=== PATIENT | female | born 1970 | race Caucasian/White ===

== ENCOUNTER → 2023-08-28 | Outpatient (CLI) | payer OTHER, SELFPAY ==
--- NOTE | 2023-08-28 13:06 | PCM.CR.HP2 ---
CR - History & Physical General Arrival date:: 08/28/23 Arrival time:: 13:07 Date of Referral:: 08/21/23 Date of CR Evaluation:: 08/28/23 Referring Physician: Dr. Regine Deluna Primary Diagnosis: AVR History of Present Cardiac Event Onset Date Heart valve replacement or repair:: Yes Medications Ambulatory Orders Medication Instructions Recorded amiodarone 200 mg tablet 200 mg PO DAILY 08/28/23 aspirin 81 mg tablet,delayed 81 mg PO DAILY 08/28/23 release atorvastatin 40 mg tablet 40 mg PO DAILY 08/28/23 gabapentin 100 mg capsule 100 mg PO BID 08/28/23 Allergies Allergies No Known Allergies Allergy (Unverified 08/19/22 07:40) Sleep Disorder Evaluation Hx of Sleep Apnea: No Do you snore loudly (louder than talking or can be heard through closed doors)?: No Do you often feel tired/ fatigued/ sleepy during daytime?: No Has anyone observed you stop breathing during sleep?: No History of Hypertension (for STOP score): No STOP Results: Negative Advanced Directives Advanced Directives Power of Pocket Machine Operator: No Living Will: No Advance Directives Information Provided: No Advance Directives on File: No DNR Order?:: No Past Medical History Covid-19 Screening Physicial Symptoms Other Clinical Concerns Exposure Risk Pertinent Comorbidities Has a serious heart condition:: Yes Past Surgical History Surgical History: - (Aortic aneurysm repair, AVR) Social History Smoking History Smoking Status: Never smoker Alcohol Use Alcohol Usage: Yes (rare) Occupation Occupation (List type of work in comments):: Employed Hours worked per day:: 9 Hobbies, Recreation, Social Activities Hobbies: Reading and Hiking Recreational Activities: I am able to engage in most, but not all activities Social Environment Status Marital Status: Single Current Living Arrangements Living Environment:: Family Children Do any of your children live nearby?: No Safety Do you feel safe in your surroundings?: Yes Assistance Do you need any assistance at home?: no Review of Systems Review of Systems Hints Review of Present Symptoms: Reports Shortness of Breath with Exertion, Operative Discomfort, Fatigue, Appetite - Normal and Sleep - Normal; Denies Shortness of Breath at Rest, PVD, Angina, Wound Healing, Dizziness/Lightheadedness, Heart Arrhythmia/Irregularities, Appetite - Special Diet or Sexual Changes Pain Is Patient Pain Free?: No Pain Location: back Pain Level: 03/21 Risk Factor Assessment Vital Signs Pulse Ox: 94 Blood Pressure: 136/63 Pulse Pulse Rate: 75 Stress Stress: Work-related Obesity Height: 5 ft 3 in Weight:: 177 lb Weight in Pounds: 177.0 lbs Body Mass Index (BMI): 31.3 Nutritional Referral for Obesity: No Physical Inactivity Physical Inactivity: Reg Exercise 30 min/day Risk Stratification Risk Guidelines: Lowest Risk: Risk Factor for Smoking, Risk Factor for Diabetes, Risk Factor for Sedentary Lifestyle and Risk Factor for Depression, Moderate Risk: Risk Factor for Obesity and Risk Factor for Hypertension and Highest Risk: Risk Factor for Dyslipidemia For Smoking Smoking Risk Guidelines For Dyslipidemia Dyslipidemia Risk Guidelines For Diabetes Mellitus Diabetes Risk Guidelines For Obesity/Overweight Obesity/Overweight Risk Guidelines For Hypertension Hypertension Risk Guidelines For Sedentary Lifestyle Sedentary Lifestyle Risk Guidelines For Depression Depression Risk Guidelines Motivation Motivation to Participate On a scale of 1 to 10, how prepared are you to commit to attending program?: 10 What do you see as barriers to successfully being able to complete the program?: nothing What do you see as the benefits of succesfully completing the program? In other words, what do you hope to get out of participating in the program?: strength Are there issues you are dealing with that will interfere with completing the program?: no Do you have a spouse or signficant other, family or friends who will help support you to complete the program?: family
[2023-08-28 13:19] VITALS: BP 136/63; PULSE 75; O2SAT 94
[2023-08-28 13:30] VITALS: BMI 31.3
--- NOTE | 2023-08-28 14:09 | PCM.CR.ITP ---
Diagnosis General Information Admitting Diagnosis: AVR Personal Learning Style:: Audio/Visual Stage of change r/t lifestyle modifications:: Contemplation Gave educational material for:: Treating Heart Disease, How The Heart Works, What it means to have Heart Disease, How Coronary Artery Disease is Diagnosed, Heart Procedures, What Heart Medications Do, Risk Factors & Modifications, Living an Active Life, Nutrition, Emotions & Heart Disease, Stress Management & Relaxation and Sleep Disorders & Heart Disease Education/Goals Cardiac Rehabilitation Goals Personal Goals: Initial Assessment: Improve management of stress and emotions, Improve energy level, Participate in home exercise program, Get back to work, or to resume activities faster, Improve knowledge of cardiac disease, Improve muscle strength and endurance, Improve diet and eating habits (eat healthier) and Control risk factors (learn risk factor modification) Scale for measuring improvement of personal goals Diagnosis & Disease Process Outcomes/Goals: Pt IDs own risk factors & lifestyle modifications by Session 10, Verbalizes symptoms of angina & response by session 3., Pt independently manages and Other Additional Outcomes/Goals: Plan/Interventions: Assist Pt to ID & engage in lifestyle modification to reduce CVD risk, Instruct on individual risk factors, Review symptoms of angina & emergency actions, Review secondary diagnosis & identify educational needs. and Other see comment 30 day Reassessments:: Not Met 30 day Reassessments:: Not Met 30 day Reassessments:: Not Met 30 day Reassessments:: Not Met Final Reassessments:: Not Met Safety Referral to Physical Therapy: No Referral to [facility] Case Management: No Fall Risk Assessed:: Yes Assistive Devices:: None Exercise - Initial Assessment Visit Date of Eval: 08/28/23 (initial eval ) Mets: Pre-: >3 METS for 30 minutes by discharge, >5 METS for 30 minutes by discharge, >7 METS for 30 minutes by discharge and Unable to meet goal due to: (see comment below) Physician Prescribed Exercise Modalities: Treadmill, Airdyne, NuStep, SciFit and Lateral Community Development Coordinator Frequency: 3x/week for 12 weeks [36 sessions] Intensity: 60-80% of age predicted maximum heart rate reserve Duration: 30 - 45 minutes Current METSs:: 3 Target Heart Rate:: 101-128 Resting Blood Pressure: 136/63 EKG Type: NSR Outcomes & Goals Goals:: Verbalizes understanding of THR, RPE & goal METS by session 6, Documents in home exercise log/reports 30 min aerobic 5 day/wk by DC, Demonstrates accurate pulse taking by DC and Other additional outcome/goals: see below Intervention & Plan Exercise Program Goals: Instruct on personal THR & RPE, Instruct on MET level & personal MET goal, Show patient to take own pulse /validate performance until accurate, Instruct on home exercise and Other additional plan/int Physical Activity Home Exercise Physical Activity - Home Exercise: Safe Exercise, Warm-up, Self-monitoring, Cool-Down, Home Exercise > 30 min Daily and Sitting Time <3 hours/daily Outcomes & Goals Outcomes/Goals: Demonstrates correct Warm-up/exercise Cool-Down (S3) if = 2.5 METs, Verbalizes symptoms of exercise intolerance by Session 3 (S3), Demonstrate safe equipment use (S3) & follows exercise prescrition (6) and Other: See below Intervention & Plan Plan/Intervention: Instruct warm-up & cool-down if exercising at > 2 METs, Instruct on symptoms of exercise intolerance & actions to take, Instruct & monitor on saf, Assess intial functional capacity & safety risk and Other See below Nutrition - Initial Assessment Program Goals Nutrition Program Goals Patient has diagnosis of Hyperlipidemia (ICD E78)?: Yes Visit Date of Eval: 08/28/23 (initial eval ) Cholesterol/Lipids (Other Core Measures) Determine presence & major risk factors that modify LDL goal: Hypertension or hypertensive medication, Low HDL cholesterol <40 mg/dL*, Family history of premature CHD in Male < 55 years: female <65 yearsFa and Age men > 45 years; women >/= 55 years Outcomes/Goals: Pt IDs own risk factors & lifestyle modifications by Session 10, Verbalizes symptoms of angina & response by session 3., Pt independently manages and Other Additional Outcomes/Goals: Intervention/Plan: Advocate for lipid panel cholesterol medication if applicable, Instruct on personal lipid levels & lipid goals/NCEP guidelines, Instruct on cholesterol and Other additional plan/int Referral to dietitian:: Yes Diabetes (Other Core Measures) Diabetes Type: Not Applicable Weight Mgt (Other Care) Height: 5 ft 3 in Weight:: 177 lb BMI: 31.3 Diagnosis Overweight/Obesity BMI> 30% ICD-10 E66: Yes Diagnosis High BMI/Morbid Obesity BMI> 35% ICD-10 Z68: No Outcomes/Goals: Pt sets, maintains & shows weight loss goal & trend during rehab and Other additional outcomes/goals Intervention/Plan: Instruct on ideal BMI & set weight loss goal w/patient, Assist pt to ID & incorporate diet changes for weight loss by S9, Refer to Structured Weight Loss program as appropriate, Encourage goal of using 250-300dcal per session for weight loss and Other additional plan/interventions Healthy Eating Habits Will attend diet classes:: Yes Outcomes/Goals:: Consume diet rich in vegs,fruits,whole grain/high fiber,fish,lean meat, Limit sat/trans fats,cholesterol & added salts & sugars and Other additional outcome/goals: Intervention/Plan:: Assess current eating habits and Other Additional plan/interventions Education Gave educational materials for:: Signs & symptoms of hypoglycemia, Signs & symptoms of hyperglycemia, Relate diabetes to coronary artery disease and Healthy eating Core - Initial Assessment Visit Date of Eval: 08/28/23 (initial eval ) Medication Compliance Preventative Medication(s):: Aspirin and Statin/lipid H/O mental health issues: depression, anxiety, or addiction?: No Doesn?t believe in the benefits of treatment?: No Believes medications are unnecessary or harmful?: No Has a concern about medication side effects?: No Expresses concern over the cost of medications?: No Outcomes/Goals: Verbalizes medications,desired effect & common side effects @ DC, Pt self-reports following medication regimen, Keeps card in wallet w/medications listed by DC and Other additional outcome/goals: Interventions/plans: Instruct on medication effects & side effects, Review medication list w/patient every two weeks, Instruct importance of taking meds as ordered & assist problem solving and Other additional Tobacco Use Tobacco Use: Non-smoker Hypertension Resting Blood Pressure:: 136/63 [place] [employer] Hypertension Guidelines Outcomes/Goals: Able to verbalize/achieve optimal blood pressure <130/80, Incorporates diet changes & exercise for blood pressure control by DC and Other additional outcomes/goals Interventions/plan: Instruct on optimal blood pressure, hypertension & medications, Instruct on effects of sodium, alcohol, stress, exercise &hypertension and Other additional plan/interventions Tobacco Cessation Referral Smoking Cessation Referral:: No Individual Education/Counseling:: No Education Schedule Given:: Yes Psychosocial - Initial Assess VIsit Date of Eval: 08/28/23 (initial eval ) History of previous Mental disease:: No Target Goals Target Goals Patient Health Questionnaire PHQ-9 Screening Initial Assessment: 1. Little interest or pleasure in doing things: Several days 2. Feeling down, depressed, or hopeless: Several days 3. Trouble falling or staying asleep, or sleeping too much: Several days 4. Feeling tired or having little energy: Several days 5. Poor appetite or overeating: Not at all 6. Feeling bad about yourself -- or that you are a failure or have let yourself or your family down: Not at all 7. Trouble concentrating on things, such as reading the newspaper or watching television: Not at all 8. Moving or speaking so slowly that other people could have noticed. Or the opposite - being so fidgety or restless that you have been moving around a lot more than usual: Not at all 9. Thoughts that you would be better off , or of hurting yourself in some way: Not at all How difficult have these problems made it for you to do your work, take care of things at home, or get along with other people?: Not difficult at all Total Score: 4 CELINA-Q SV Test Statements CAD is a disease of the arteries in the heart: I Don't Know Examples of risk factors for heart disease: True Angina is chest pain or discomfort: I Don't Know The benefits of resistance training include: True Eating more meat and dairy products: False Anti-platelet medications such as aspirin are important: True The only effective way to manage stress: False An exercise warm-up slowly increases heart rate: True Prepared, processed foods usually have high sodium: I Don't Know Depression is common after a heart attack: True The statin medications lower cholesterol: True To control blood pressure, lower the amount of sodium: True If someone gets chest discomfort during walking: False Transfats are partially hydrogenated vegetable oils: I Don't Know Sleep apnea that is not treated increases the risk: True To control cholesterol, one should become a vegetarian: False Someone knows if he/she is exercising at the right level: True Diabetes cannot be prevented with exercise & health eating: False Stress is a large risk for heart attack: I Don't Know A diet that can help lower blood pressure is rich in: True Total Score Total Correct Responses: 14 Self-Efficacy 6-Item Scale Initial Assessment: We would like to know how confident you are in doing certain activities. Please select your confidence level for: Fatigue Select Number: 10 Physical Discomfort or Pain Select Number: 10 Emotional Distress Select Number: 9 Other Symptoms or Health Problems Select Number: 8 Different Tasks and Activities Select Number: 10 Medication Select Number: 10 Total Score:: 9 Nutrition Survey Nutrition Survey Instructions Scoring Instructions Nutrition Survey Initial: Have you lost >10 lbs over the past 2 months without trying?: Yes Are you following a special diet at home for diabetes, low fat, or low salt?: No Are you interested in meeting with a dietitian for help understanding your diet?: Yes Do you eat less than 3 meals a day?: No Do you eat fatty meats (german, sausage, ribs, etc), fried foods, desserts, large amounts of salad dressings, margarine, butter, or cheese most days?: No Do you have food allergies? [Enter types in comment field]: No Do you eat in restaurants more than 3 times a week?: No Do you season food with salt, seasoning salt, or garlic salt?: Yes Do you used canned, boxed, frozen meals, or soups, seasoning packets?: Yes Total Score:: 4 Exercise - Final/Discharge Physician Prescribed Exercise Modalities: Treadmill, Airdyne, NuStep, SciFit and Lateral Community Development Coordinator Frequency: 3x/week for 12 weeks [36 sessions] Intensity: 60-80% of age predicted maximum heart rate reserve Current METSs:: 3 Target Heart Rate:: 101-128 Nutrition - 30-Day Assessment Weight Mgt (Other Care) Height: 5 ft 3 in Weight:: 177 lb BMI: 31.3 Nutrition - 60-Day Assessment Weight Mgt (Other Care) Height: 5 ft 3 in Weight:: 177 lb BMI: 31.3 Core - Final Assessment Hypertension Resting Blood Pressure:: 136/63 [place] [employer] Hypertension Guidelines Core - 60-Day Assessment Hypertension Resting Blood Pressure:: 136/63 [place] [employer] Hypertension Guidelines Psychosocial - 30-Day Assess Target Goals Target Goals Psychosocial - 60-Day Assess Target Goals Target Goals Psychosocial - 90-Day Assess Target Goals Target Goals Psychosocial - Final Assessmen Target Goals Target Goals Nutrition - 90-Day Assessment Weight Mgt (Other Care) Height: 5 ft 3 in Weight:: 177 lb BMI: 31.3 Nutrition - Final Assessment Program Goals Patient has diagnosis of Hyperlipidemia (ICD E78)?: Yes Weight Mgt (Other Care) Height: 5 ft 3 in Weight:: 177 lb BMI: 31.3
[2023-08-28 14:22] VITALS: BP 136/63; BMI 31.3
== END | disposition home or self-care (01) ==
DX: E78.5 Hyperlipidemia, unspecified (principal)
CPT/HCPCS: 93005

== ENCOUNTER 2023-09-09 15:39 | Outpatient (RCR) | payer OTHER, SELFPAY | END 2023-09-10 23:59 | LOC: CR 15:39 | DX: Z95.2 Presence of prosthetic heart valve (principal); Z95.828 Presence of other vascular implants and grafts; E66.9 Obesity, unspecified | CPT/HCPCS: 93798 ==

== ENCOUNTER 2023-10-09 15:45 | Outpatient (RCR) | payer OTHER, SELFPAY ==
[2023-08-28 14:22] VITALS: BMI 31.3
--- NOTE | 2023-09-25 10:20 | CR.ITP_ITS ---
Exercise - Initial Assessment Visit Session #:: 7 Nutrition - Initial Assessment Weight Mgt (Other Care) Height: 5 ft 3 in Weight:: 176 lb BMI: 31.1 Psychosocial - Initial Assess Target Goals Target Goals Patient Health Questionnaire PHQ-9 Screening 30-Day Re-eval Assessment: 1. Little interest or pleasure in doing things: Several days 2. Feeling down, depressed, or hopeless: Several days 3. Trouble falling or staying asleep, or sleeping too much: Several days 4. Feeling tired or having little energy: Several days 5. Poor appetite or overeating: Not at all 6. Feeling bad about yourself -- or that you are a failure or have let y ourself or your family down: Not at all 7. Trouble concentrating on things, such as reading the newspaper or watching television: Not at all 8. Moving or speaking so slowly that other people could have noticed. Or the opposite - being so fidgety or restless that you have been moving around a lot more than usual: Not at all 9. Thoughts that you would be better off , or of hurting yourself in some way: Not at all How difficult have these problems made it for you to do your work, take care of things at home, or get along with other people?: Not difficult at all Total Score: 4 Self-Efficacy 6-Item Scale 30-Day Re-eval Assessment: We would like to know how confident you are in doing certain activities. Please select your confidence level for: Fatigue Select Number: 10 Physical Discomfort or Pain Select Number: 10 Emotional Distress Select Number: 9 Other Symptoms or Health Problems Select Number: 8 Different Tasks and Activities Select Number: 10 Medication Select Number: 10 Total Score:: 9 Nutrition Survey Nutrition Survey Instructions Scoring Instructions Exercise - 30-day Assessment Visit Date of Eval: 09/25/23 Session #:: 7 Physician Prescribed Exercise Modalities: Treadmill, Airdyne and NuStep Intensity: 60-80% of age predicted maximum heart rate reserve Duration: 30 - 45 minutes Current METSs:: 3 Target Heart Rate:: 101-128 Current RPE:: 9-12 Maximum Excercise HR:: 122 Resting Blood Pressure: 128/70 Maximum Exercise Blood Pressure: 148/82 EKG Type: NSR to ST Outcomes & Goals Goals:: Verbalizes understanding of THR, RPE & goal METS by session 6, Documents in home exercise log/reports 30 min aerobic 5 day/wk by DC, Demonstrates accurate pulse taking by DC and Other additional outcome/goals: see below Intervention & Plan Exercise Program Goals: Instruct on personal THR & RPE, Instruct on MET level & personal MET goal, Show patient to take own pulse /validate performance until accurate, Instruct on home exercise and Other additional plan/int 30-day Reassessments 30 day Reassessments:: Progressing Reassessment Notes & Comments:: RPE explained Physical Activity Home Exercise Physical Activity - Home Exercise: Safe Exercise, Warm-up, Self-monitoring, Cool-Down, Home Exercise > 30 min Daily and Sitting Time <3 hours/daily Outcomes & Goals Outcomes/Goals: Demonstrates correct Warm-up/exercise Cool-Down (S3) if = 2.5 METs, Verbalizes symptoms of exercise intolerance by Session 3 (S3), Demonstrate safe equipment use (S3) & follows exercise prescrition (6) and Other: See below Intervention & Plan Plan/Intervention: Instruct warm-up & cool-down if exercising at > 2 METs, Instruct on symptoms of exercise intolerance & actions to take, Instruct & monitor on saf, Assess intial functional capacity & safety risk and Other See below 30-day Reassessments 30 day Reassessments:: Progressing Reassessment Notes & Comments:: warm up encouraged Nutrition - 30-Day Assessment Program Goals Nutrition Program Goals Patient has diagnosis of Hyperlipidemia (ICD E78)?: Yes Visit Date of Eval: 09/25/23 Session #:: 7 Cholesterol/Lipids (Other Core Measures) Determine presence & major risk factors that modify LDL goal: Hypertension or hypertensive medication, Low HDL cholesterol <40 mg/dL*, Family history of premature CHD in Male < 55 years: female <65 yearsFa and Age men > 45 years; women >/= 55 years Outcomes/Goals: Pt IDs own risk factors & lifestyle modifications by Session 10, Verbalizes symptoms of angina & response by session 3., Pt independently manages and Other Additional Outcomes/Goals: Intervention/Plan: Advocate for lipid panel cholesterol medication if applicable, Instruct on personal lipid levels & lipid goals/NCEP guidelines, Instruct on cholesterol and Other additional plan/int 30-day Reassessments:: Progressing Reassessment Notes & Comments:: pt to attend nutrition class Diabetes (Other Core Measures) Diabetes Type: Not Applicable Weight Mgt (Other Care) Height: 5 ft 3 in Weight:: 176 lb BMI: 31.1 Diagnosis Overweight/Obesity BMI> 30% ICD-10 E66: Yes Diagnosis High BMI/Morbid Obesity BMI> 35% ICD-10 Z68: No Outcomes/Goals: Pt sets, maintains & shows weight loss goal & trend during rehab and Other additional outcomes/goals Intervention/Plan: Instruct on ideal BMI & set weight loss goal w/patient, Assist pt to ID & incorporate diet changes for weight loss by S9, Refer to Structured Weight Loss program as appropriate, Encourage goal of using 250- 300dcal per session for weight loss and Other additional plan/interventions 30 day Reassessments:: Progressing Reassessment Notes & Comments:: pt to attend nutrition class Healthy Eating Habits Will attend diet classes:: Yes Outcomes/Goals:: Consume diet rich in vegs,fruits,whole grain/high fiber,fish,lean meat, Limit sat/trans fats,cholesterol & added salts & sugars and Other additional outcome/goals: 30-day Reassessments:: Progressing Reassessment Notes & Comments:: pt to attend nutrition class Education Gave educational materials for:: Signs & symptoms of hypoglycemia, Signs & symptoms of hyperglycemia, Relate diabetes to coronary artery disease and Healthy eating Nutrition - 60-Day Assessment Weight Mgt (Other Care) Height: 5 ft 3 in Weight:: 176 lb BMI: 31.1 Core - 30-Day Assessment Visit Date of Eval: 09/25/23 Session #:: 7 Medication Compliance Preventative Medication(s):: Aspirin and Statin/lipid H/O mental health issues: depression, anxiety, or addiction?: No Doesn?t believe in the benefits of treatment?: No Believes medications are unnecessary or harmful?: No Has a concern about medication side effects?: No Expresses concern over the cost of medications?: No Outcomes/Goals: Verbalizes medications,desired effect & common side effects @ DC, Pt self-reports following medication regimen, Keeps card in wallet w/medications listed by DC and Other additional outcome/goals: Interventions/plans: Instruct on medication effects & side effects, Review medication list w/patient every two weeks, Instruct importance of taking meds as ordered & assist problem solving and Other additional 30-day Reassessments:: Progressing Reassessment Notes & Comments:: pt encouraged to take her meds Tobacco Use Tobacco Use: Non-smoker Hypertension Resting Blood Pressure:: 128/70 [place] [employer] Hypertension Guidelines Peak Exercise Blood Pressure:: 148/82 Outcomes/Goals: Able to verbalize/achieve optimal blood pressure <130/80, Incorporates diet changes & exercise for blood pressure control by DC and Other additional outcomes/goals Interventions/plan: Instruct on optimal blood pressure, hypertension & medications, Instruct on effects of sodium, alcohol, stress, exercise &hypertension and Other additional plan/interventions 30 day Reassessments:: Progressing Reassessment Notes & Comments:: pt encouraged to take her meds Tobacco Cessation Referral Smoking Cessation Referral:: No Individual Education/Counseling:: No Education Schedule Given:: Yes Psychosocial - 30-Day Assess VIsit Date of Eval: 09/25/23 Session #:: 7 History of previous Mental disease:: No Target Goals Target Goals Psychosocial - 60-Day Assess Target Goals Target Goals Psychosocial - 90-Day Assess Target Goals Target Goals Psychosocial - Final Assessmen Target Goals Target Goals Nutrition - 90-Day Assessment Weight Mgt (Other Care) Height: 5 ft 3 in Weight:: 176 lb BMI: 31.1 Nutrition - Final Assessment Weight Mgt (Other Care) Height: 5 ft 3 in Weight:: 176 lb BMI: 31.1
[2023-09-25 10:28] VITALS: BP 128/70; BMI 31.1
== END 2023-10-11 23:59 ==
LOC: CR 15:45
DX: Z95.2 Presence of prosthetic heart valve (principal); Z95.828 Presence of other vascular implants and grafts
CPT/HCPCS: 93798

== ENCOUNTER 2023-11-04 15:45 | Outpatient (RCR) | payer OTHER, SELFPAY ==
[2023-09-25 10:28] VITALS: BMI 31.1
[2023-10-12 00:38] VITALS: BP 128/70
--- NOTE | 2023-10-26 08:35 | CR.ITP_ITS ---
Nutrition - Initial Assessment Weight Mgt (Other Care) Height: 5 ft 3 in Weight:: 177 lb BMI: 31.3 Psychosocial - Initial Assess Target Goals Target Goals Patient Health Questionnaire PHQ-9 Screening 60-Day Re-eval Assessment: 1. Little interest or pleasure in doing things: Several days 2. Feeling down, depressed, or hopeless: Several days 3. Trouble falling or staying asleep, or sleeping too much: Several days 4. Feeling tired or having little energy: Several days 5. Poor appetite or overeating: Not at all 6. Feeling bad about yourself -- or that you are a failure or have let yourself or your family down: Not at all 7. Trouble concentrating on things, such as reading the newspaper or watching television: Not at all 8. Moving or speaking so slowly that other people could have noticed. Or the opposite - being so fidgety or restless that you have been moving around a lot more than usual: Not at all 9. Thoughts that you would be better off , or of hurting yourself in s ome way: Not at all How difficult have these problems made it for you to do your work, take care of things at home, or get along with other people?: Not difficult at all Total Score: 4 Self-Efficacy 6-Item Scale 60-Day Re-eval Assessment: We would like to know how confident you are in doing certain activities. Please select your confidence level for: Fatigue Select Number: 10 Physical Discomfort or Pain Select Number: 10 Emotional Distress Select Number: 9 Other Symptoms or Health Problems Select Number: 8 Different Tasks and Activities Select Number: 10 Medication Select Number: 10 Total Score:: 9 Nutrition Survey Nutrition Survey Instructions Scoring Instructions Exercise - 60-day Assessment Visit Date of Eval: 10/26/23 Session #:: 16 Physician Prescribed Exercise Modalities: Treadmill, Airdyne and NuStep Frequency: 3x/week for 12 weeks [36 sessions] Intensity: 60-80% of age predicted maximum heart rate reserve Duration: 30 - 45 minutes Current METSs:: 5 Target Heart Rate:: 101-128 Current RPE:: 11-12.5 Maximum Excercise HR:: 177 Resting Blood Pressure: 126/72 Maximum Exercise Blood Pressure: 214/102 EKG Type: NSR to ST with isolated PVC. 44 sec burst of PSVT. Outcomes & Goals Goals:: Verbalizes understanding of THR, RPE & goal METS by session 6, Documents in home exercise log/reports 30 min aerobic 5 day/wk by DC, Demonstrates accurate pulse taking by DC and Other additional outcome/goals: see below Intervention & Plan Exercise Program Goals: Instruct on personal THR & RPE, Instruct on MET level & personal MET goal, Show patient to take own pulse /validate performance until accurate, Instruct on home exercise and Other additional plan/int 30-day Reassessments 30 day Reassessments:: Progressing Reassessment Notes & Comments:: MET's explained Physical Activity Home Exercise Physical Activity - Home Exercise: Safe Exercise, Warm-up, Self-monitoring, Cool-Down, Home Exercise > 30 min Daily and Sitting Time <3 hours/daily Outcomes & Goals Outcomes/Goals: Demonstrates correct Warm-up/exercise Cool-Down (S3) if = 2.5 METs, Verbalizes symptoms of exercise intolerance by Session 3 (S3), Demonstrate safe equipment use (S3) & follows exercise prescrition (6) and Other: See below Intervention & Plan Plan/Intervention: Instruct warm-up & cool-down if exercising at > 2 METs, Instruct on symptoms of exercise intolerance & actions to take, Instruct & monitor on saf, Assess intial functional capacity & safety risk and Other See below 30-day Reassessments 30 day Reassessments:: Progressing Reassessment Notes & Comments:: cool down encouraged Nutrition - 30-Day Assessment Weight Mgt (Other Care) Height: 5 ft 3 in Weight:: 177 lb BMI: 31.3 Nutrition - 60-Day Assessment Program Goals Nutrition Program Goals Patient has diagnosis of Hyperlipidemia (ICD E78)?: Yes Visit Date of Eval: 10/26/23 Session #:: 16 Cholesterol/Lipids (Other Core Measures) Determine presence & major risk factors that modify LDL goal: Hypertension or hypertensive medication, Low HDL cholesterol <40 mg/dL*, Family history of premature CHD in Male < 55 years: female <65 yearsFa and Age men > 45 years; women >/= 55 years Outcomes/Goals: Pt IDs own risk factors & lifestyle modifications by Session 10, Verbalizes symptoms of angina & response by session 3., Pt independently manages and Other Additional Outcomes/Goals: Intervention/Plan: Advocate for lipid panel cholesterol medication if applic able, Instruct on personal lipid levels & lipid goals/NCEP guidelines, Instruct on cholesterol and Other additional plan/int 30-day Reassessments:: Progressing Reassessment Notes & Comments:: pt to attend nutrition class Diabetes (Other Core Measures) Diabetes Type: Not Applicable Weight Mgt (Other Care) Height: 5 ft 3 in Weight:: 177 lb BMI: 31.3 Diagnosis Overweight/Obesity BMI> 30% ICD-10 E66: Yes Diagnosis High BMI/Morbid Obesity BMI> 35% ICD-10 Z68: No Outcomes/Goals: Pt sets, maintains & shows weight loss goal & trend during rehab and Other additional outcomes/goals Intervention/Plan: Instruct on ideal BMI & set weight loss goal w/patient, Assist pt to ID & incorporate diet changes for weight loss by S9, Refer to Structured Weight Loss program as appropriate, Encourage goal of using 250- 300dcal per session for weight loss and Other additional plan/interventions 30 day Reassessments:: Progressing Reassessment Notes & Comments:: pt to attend nutrition class Healthy Eating Habits Will attend diet classes:: Yes Outcomes/Goals:: Consume diet rich in vegs,fruits,whole grain/high fiber,fish,lean meat, Limit sat/trans fats,cholesterol & added salts & sugars and Other additional outcome/goals: Intervention/Plan:: Assess current eating habits and Other Additional plan/interventions 30-day Reassessments:: Progressing Reassessment Notes & Comments:: pt to attend nutrition class Education Gave educational materials for:: Signs & symptoms of hypoglycemia, Signs & symptoms of hyperglycemia, Relate diabetes to coronary artery disease and Healthy eating Core - 60-Day Assessment Visit Date of Eval: 10/26/23 Session #:: 16 Medication Compliance Preventative Medication(s):: Aspirin and Statin/lipid H/O mental health issues: depression, anxiety, or addiction?: No Doesn?t believe in the benefits of treatment?: No Believes medications are unnecessary or harmful?: No Has a concern about medication side effects?: No Expresses concern over the cost of medications?: No Outcomes/Goals: Verbalizes medications,desired effect & common side effects @ DC, Pt self-reports following medication regimen, Keeps card in wallet w/medications listed by DC and Other additional outcome/goals: Interventions/plans: Instruct on medication effects & side effects, Review medication list w/patient every two weeks, Instruct importance of taking meds as ordered & assist problem solving and Other additional 30-day Reassessments:: Progressing Reassessment Notes & Comments:: pt encouraged to take her meds Tobacco Use Tobacco Use: Non-smoker Hypertension Resting Blood Pressure:: 126/72 [place] [employer] Hypertension Guidelines Peak Exercise Blood Pressure:: 214/102 Outcomes/Goals: Able to verbalize/achieve optimal blood pressure <130/80, Incorporates diet changes & exercise for blood pressure control by DC and Other additional outcomes/goals Interventions/plan: Instruct on optimal blood pressure, hypertension & medications, Instruct on effects of sodium, alcohol, stress, exercise &hypertension and Other additional plan/interventions 30 day Reassessments:: Progressing Reassessment Notes & Comments:: pt encouraged to take her meds Tobacco Cessation Referral Smoking Cessation Referral:: No Individual Education/Counseling:: No Education Schedule Given:: Yes Psychosocial - 30-Day Assess Target Goals Target Goals Outcomes/Goals: See list Psychosocial Outcomes/Goals:: ID's personal stressors & 2 strategies to manage stress by discharge and Other Additional outcome/goals: Psychosocial - 60-Day Assess VIsit Date of Eval: 10/26/23 Session #:: 16 History of previous Mental disease:: No Target Goals Target Goals Outcomes/Goals: See list Psychosocial Outcomes/Goals:: ID's personal stressors & 2 strategies to manage stress by discharge and Other Additional outcome/goals: Intervention/Plan: See List Interventions/Plan:: Assess stressors,coping strategies & signs of derpression on admission, Instruct/assist pt to develop coping & personal stress Mgt strategies, Refer to Behavioral Health if appropriate, Refer to Physician if appropriate, Instruct patient to recognize signs & symptoms of depression, Instruct patient to recog and Other additional plan/intervention 30-day Reassessments: 30 day Reassessments:: Met Psychosocial - 90-Day Assess Target Goals Target Goals Psychosocial - Final Assessmen Target Goals Target Goals Nutrition - 90-Day Assessment Weight Mgt (Other Care) Height: 5 ft 3 in Weight:: 177 lb BMI: 31.3 Nutrition - Final Assessment Weight Mgt (Other Care) Height: 5 ft 3 in Weight:: 177 lb BMI: 31.3
[2023-10-26 08:50] VITALS: BP 126/72; BMI 31.3
== END 2023-11-11 23:59 ==
LOC: CR 15:45
DX: E66.9 Obesity, unspecified (principal); Z95.2 Presence of prosthetic heart valve; Z95.828 Presence of other vascular implants and grafts
CPT/HCPCS: 93798; 97802

== ENCOUNTER 2023-12-09 15:15 | Outpatient (RCR) | payer OTHER, SELFPAY ==
[2023-10-26 08:50] VITALS: BMI 31.3
[2023-11-12 00:53] VITALS: BP 126/72; BP 128/70
--- NOTE | 2023-11-25 09:09 | CR.ITP_ITS ---
Nutrition - Initial Assessment Weight Mgt (Other Care) Height: 5 ft 3 in Weight:: 178 lb BMI: 31.5 Psychosocial - Initial Assess Target Goals Target Goals Patient Health Questionnaire PHQ-9 Screening 90-Day Re-eval Assessment: 1. Little interest or pleasure in doing things: Several days 2. Feeling down, depressed, or hopeless: Several days 3. Trouble falling or staying asleep, or sleeping too much: Several days 4. Feeling tired or having little energy: Several days 5. Poor appetite or overeating: Not at all 6. Feeling bad about yourself -- or that you are a failure or have let yourself or your family down: Not at all 7. Trouble concentrating on things, such as reading the newspaper or watching television: Not at all 8. Moving or speaking so slowly that other people could have noticed. Or the opposite - being so fidgety or restless that you have been moving around a lot more than usual: Not at all 9. Thoughts that you would be better off , or of hurting yourself in s ome way: Not at all How difficult have these problems made it for you to do your work, take care of things at home, or get along with other people?: Not difficult at all Total Score: 4 Self-Efficacy 6-Item Scale 90-Day Re-eval Assessment: We would like to know how confident you are in doing certain activities. Please select your confidence level for: Fatigue Select Number: 10 Physical Discomfort or Pain Select Number: 10 Emotional Distress Select Number: 9 Other Symptoms or Health Problems Select Number: 8 Different Tasks and Activities Select Number: 10 Medication Select Number: 10 Total Score:: 9 Nutrition Survey Nutrition Survey Instructions Scoring Instructions Exercise - 90-day Assessment Visit Date of Eval: 11/25/23 Session #:: 24 Physician Prescribed Exercise Modalities: Treadmill, Airdyne and NuStep Frequency: 3x/week for 12 weeks [36 sessions] Intensity: 60-80% of age predicted maximum heart rate reserve Duration: 30 - 45 minutes Current METSs:: 5 Target Heart Rate:: 101-128 Current RPE:: 11.5-12 Maximum Excercise HR:: 122 Resting Blood Pressure: 104/70 Maximum Exercise Blood Pressure: 130/82 EKG Type: NSR to ST with an isolated PVC Outcomes & Goals Goals:: Verbalizes understanding of THR, RPE & goal METS by session 6, Documents in home exercise log/reports 30 min aerobic 5 day/wk by DC, Demonstrates accurate pulse taking by DC and Other additional outcome/goals: see below Intervention & Plan Exercise Program Goals: Instruct on personal THR & RPE, Instruct on MET level & personal MET goal, Show patient to take own pulse /validate performance until accurate, Instruct on home exercise and Other additional plan/int 30-day Reassessments 30 day Reassessments:: Met Physical Activity Home Exercise Physical Activity - Home Exercise: Safe Exercise, Warm-up, Self-monitoring, Cool-Down, Home Exercise > 30 min Daily and Sitting Time <3 hours/daily Outcomes & Goals Outcomes/Goals: Demonstrates correct Warm-up/exercise Cool-Down (S3) if = 2.5 METs, Verbalizes symptoms of exercise intolerance by Session 3 (S3), Demonstrate safe equipment use (S3) & follows exercise prescrition (6) and Other: See below Intervention & Plan Plan/Intervention: Instruct warm-up & cool-down if exercising at > 2 METs, Instruct on symptoms of exercise intolerance & actions to take, Instruct & monitor on saf, Assess intial functional capacity & safety risk and Other See below 30-day Reassessments 30 day Reassessments:: Met Nutrition - 30-Day Assessment Weight Mgt (Other Care) Height: 5 ft 3 in Weight:: 178 lb BMI: 31.5 Nutrition - 60-Day Assessment Weight Mgt (Other Care) Height: 5 ft 3 in Weight:: 178 lb BMI: 31.5 Core - 90 Day Assessment Visit Date of Eval: 11/25/23 Session #:: 24 Medication Compliance Preventative Medication(s):: Aspirin and Statin/lipid H/O mental health issues: depression, anxiety, or addiction?: No Doesn?t believe in the benefits of treatment?: No Believes medications are unnecessary or harmful?: No Has a concern about medication side effects?: No Expresses concern over the cost of medications?: No Outcomes/Goals: Verbalizes medications,desired effect & common side effects @ DC, Pt self-reports following medication regimen, Keeps card in wallet w/medications listed by DC and Other additional outcome/goals: Interventions/plans: Instruct on medication effects & side effects, Review medication list w/patient every two weeks, Instruct importance of taking meds as ordered & assist problem solving and Other additional 30-day Reassessments:: Met Tobacco Use Tobacco Use: Non-smoker Hypertension Resting Blood Pressure:: 104/70 [place] [employer] Hypertension Guidelines Peak Exercise Blood Pressure:: 130/82 Outcomes/Goals: Able to verbalize/achieve optimal blood pressure <130/80, Incorporates diet changes & exercise for blood pressure control by DC and Other additional outcomes/goals Interventions/plan: Instruct on optimal blood pressure, hypertension & medications, Instruct on effects of sodium, alcohol, stress, exercise &hypertension and Other additional plan/interventions 30 day Reassessments:: Met Tobacco Cessation Referral Smoking Cessation Referral:: No Individual Education/Counseling:: No Education Schedule Given:: Yes Psychosocial - 30-Day Assess Target Goals Target Goals Psychosocial - 60-Day Assess Target Goals Target Goals Psychosocial - 90-Day Assess VIsit Date of Eval: 11/25/23 Session #:: 24 History of previous Mental disease:: No Target Goals Target Goals Outcomes/Goals: See list Psychosocial Outcomes/Goals:: ID's personal stressors & 2 strategies to manage stress by discharge and Other Additional outcome/goals: Intervention/Plan: See List Interventions/Plan:: Assess stressors,coping strategies & signs of derpression on admission, Instruct/assist pt to develop coping & personal stress Mgt strategies, Refer to Behavioral Health if appropriate, Refer to Physician if appropriate, Instruct patient to recognize signs & symptoms of depression, Instruct patient to recog and Other additional plan/intervention 30-day Reassessments: 30 day Reassessments:: Met Psychosocial - Final Assessmen Target Goals Target Goals Nutrition - 90-Day Assessment Program Goals Nutrition Program Goals Patient has diagnosis of Hyperlipidemia (ICD E78)?: Yes Visit Date of Eval: 11/25/23 Session #:: 24 Cholesterol/Lipids (Other Core Measures) Determine presence & major risk factors that modify LDL goal: Hypertension or hypertensive medication, Low HDL cholesterol <40 mg/dL*, Family history of premature CHD in Male < 55 years: female <65 yearsFa and Age men > 45 years; women >/= 55 years Outcomes/Goals: Pt IDs own risk factors & lifestyle modifications by Session 10, Verbalizes symptoms of angina & response by session 3., Pt independently manages and Other Additional Outcomes/Goals: Intervention/Plan: Advocate for lipid panel cholesterol medication if applicable, Instruct on personal lipid levels & lipid goals/NCEP guidelines, Instruct on cholesterol and Other additional plan/int 30-day Reassessments:: Met Reassessment Notes & Comments:: pt has met with nutritional services 11/02/23 Diabetes (Other Core Measures) Diabetes Type: Not Applicable Weight Mgt (Other Care) Height: 5 ft 3 in Weight:: 178 lb BMI: 31.5 Diagnosis Overweight/Obesity BMI> 30% ICD-10 E66: Yes Diagnosis High BMI/Morbid Obesity BMI> 35% ICD-10 Z68: No Outcomes/Goals: Pt sets, maintains & shows weight loss goal & trend during rehab and Other additional outcomes/goals Intervention/Plan: Instruct on ideal BMI & set weight loss goal w/patient, Assist pt to ID & incorporate diet changes for weight loss by S9, Refer to Structured Weight Loss program as appropriate, Encourage goal of using 250- 300dcal per session for weight loss and Other additional plan/interventions 30 day Reassessments:: Met Reassessment Notes & Comments:: pt has met with nutritional services 11/02/23 Healthy Eating Habits Will attend diet classes:: Yes Outcomes/Goals:: Consume diet rich in vegs,fruits,whole grain/high fiber,fish,lean meat, Limit sat/trans fats,cholesterol & added salts & sugars and Other additional outcome/goals: Intervention/Plan:: Assess current eating habits and Other Additional plan/interventions 30-day Reassessments:: Met Reassessment Notes & Comments:: pt has met with nutritional services 11/02/23 Education Gave educational materials for:: Signs & symptoms of hypoglycemia, Signs & symptoms of hyperglycemia, Relate diabetes to coronary artery disease and Healthy eating Nutrition - Final Assessment Weight Mgt (Other Care) Height: 5 ft 3 in Weight:: 178 lb BMI: 31.5
[2023-11-25 09:21] VITALS: BP 104/70; BMI 31.5
== END 2023-12-10 23:59 ==
LOC: CR 15:15
DX: Z95.2 Presence of prosthetic heart valve (principal); Z95.828 Presence of other vascular implants and grafts; E66.9 Obesity, unspecified
CPT/HCPCS: 93798

== ENCOUNTER 2023-12-30 15:15 | Outpatient (RCR) | payer OTHER, SELFPAY ==
[2023-11-25 09:21] VITALS: BMI 31.5
[2023-12-11 00:37] VITALS: BP 104/70; BP 126/72; BP 128/70
--- NOTE | 2023-12-23 08:14 | CR.ITP_ITS ---
Nutrition - Initial Assessment Weight Mgt (Other Care) Height: 5 ft 3 in Weight:: 176 lb BMI: 31.1 Core - Initial Assessment Hypertension Resting Blood Pressure:: 130/80 [employer] Hypertension Guidelines Psychosocial - Initial Assess Target Goals Target Goals Patient Health Questionnaire PHQ-9 Screening Discharge Assessment: 1. Little interest or pleasure in doing things: Several days 2. Feeling down, depressed, or hopeless: Several days 3. Trouble falling or staying asleep, or sleeping too much: Several days 4. Feeling tired or having little energy: Several days 5. Poor appetite or overeating: Not at all 6. Feeling bad about yourself -- or that you are a failure or have let yourself or your family down: Not at all 7. Trouble concentrating on things, such as reading the newspaper or watching television: Not at all 8. Moving or speaking so slowly that other people could have noticed. Or the opposite - being so fidgety or restless that you have been moving around a lot more than usual: Not at all 9. Thoughts that you would be better off , or of hurting yourself in some way: Not at all How difficult have these problems made it for you to do your work, take care of things at home, or get along with other people?: Not difficult at all Total Score: 4 Self-Efficacy 6-Item Scale Discharge Assessment: We would like to know how confident you are in doing certain activities. Please select your confidence level for: Fatigue Select Number: 10 Physical Discomfort or Pain Select Number: 10 Emotional Distress Select Number: 9 Other Symptoms or Health Problems Select Number: 8 Different Tasks and Activities Select Number: 10 Medication Select Number: 10 Total Score:: 9 Nutrition Survey Nutrition Survey Instructions Scoring Instructions Exercise - Final/Discharge Visit Date of Eval: 12/23/23 Session #:: 32 Physician Prescribed Exercise Modalities: Treadmill, Airdyne and NuStep Frequency: 3x/week for 12 weeks [36 sessions] Intensity: 60-80% of age predicted maximum heart rate reserve Duration: 30 - 45 minutes Current METSs:: 5 Target Heart Rate:: 101-128 Current RPE:: 11-11.5 Maximum Heart Rate:: 120 Resting Blood Pressure: 130/80 Maximum Exercise Blood Pressure: 150/90 EKG Type: NSR to ST with an isolated PVC Outcomes & Goals Goals:: Verbalizes understanding of THR, RPE & goal METS by session 6, Documents in home exercise log/reports 30 min aerobic 5 day/wk by DC, Demonstrates accu rate pulse taking by DC and Other additional outcome/goals: see below Intervention & Plan Exercise Program Goals: Instruct on personal THR & RPE, Instruct on MET level & personal MET goal, Show patient to take own pulse /validate performance until accurate, Instruct on home exercise and Other additional plan/int 30-day Reassessments 30 day Reassessments:: Met Physical Activity Home Exercise Physical Activity - Home Exercise: Safe Exercise, Warm-up, Self-monitoring, Cool-Down, Home Exercise > 30 min Daily and Sitting Time <3 hours/daily Outcomes & Goals Outcomes/Goals: Demonstrates correct Warm-up/exercise Cool-Down (S3) if = 2.5 METs, Verbalizes symptoms of exercise intolerance by Session 3 (S3), Demonstrate safe equipment use (S3) & follows exercise prescrition (6) and Other: See below Intervention & Plan Plan/Intervention: Instruct warm-up & cool-down if exercising at > 2 METs, Instruct on symptoms of exercise intolerance & actions to take, Instruct & monitor on saf, Assess intial functional capacity & safety risk and Other See below 30-day Reassessments 30 day Reassessments:: Met Nutrition - 30-Day Assessment Weight Mgt (Other Care) Height: 5 ft 3 in Weight:: 176 lb BMI: 31.1 Nutrition - 60-Day Assessment Weight Mgt (Other Care) Height: 5 ft 3 in Weight:: 176 lb BMI: 31.1 Core - Final Assessment Visit Date of Eval: 12/23/23 Session #:: 32 Medication Compliance Preventative Medication(s):: Aspirin and Statin/lipid H/O mental health issues: depression, anxiety, or addiction?: No Doesn?t believe in the benefits of treatment?: No Believes medications are unnecessary or harmful?: No Has a concern about medication side effects?: No Expresses concern over the cost of medications?: No Outcomes/Goals: Verbalizes medications,desired effect & common side effects @ DC, Pt self-reports following medication regimen, Keeps card in wallet w/medications listed by DC and Other additional outcome/goals: Interventions/plans: Instruct on medication effects & side effects, Review medication list w/patient every two weeks, Instruct importance of taking meds as ordered & assist problem solving and Other additional 30-day Reassessments:: Met Tobacco Use Tobacco Use: Non-smoker Hypertension Resting Blood Pressure:: 130/80 [employer] Hypertension Guidelines Peak Exercise Blood Pressure:: 150/90 Outcomes/Goals: Able to verbalize/achieve optimal blood pressure <130/80, Incorporates diet changes & exercise for blood pressure control by DC and Other additional outcomes/goals Interventions/plan: Instruct on optimal blood pressure, hypertension & medications, Instruct on effects of sodium, alcohol, stress, exercise &hypertension and Other additional plan/interventions 30 day Reassessments:: Met Tobacco Cessation Referral Smoking Cessation Referral:: No Individual Education/Counseling:: No Education Schedule Given:: Yes Core - 60-Day Assessment Hypertension Resting Blood Pressure:: 130/80 [employer] Hypertension Guidelines Psychosocial - 30-Day Assess Target Goals Target Goals Psychosocial - 60-Day Assess Target Goals Target Goals Psychosocial - 90-Day Assess Target Goals Target Goals Psychosocial - Final Assessmen VIsit Date of Eval: 12/23/23 Session #:: 32 History of previous Mental disease:: No Target Goals Target Goals Outcomes/Goals: See list Psychosocial Outcomes/Goals:: ID's personal stressors & 2 strategies to manage stress by discharge and Other Additional outcome/goals: Intervention/Plan: See List Interventions/Plan:: Assess stressors,coping strategies & signs of derpression on admission, Instruct/assist pt to develop coping & personal stress Mgt strategies, Refer to Behavioral Health if appropriate, Refer to Physician if appropriate, Instruct patient to recognize signs & symptoms of depression, Instruct patient to recog and Other additional plan/intervention 30-day Reassessments: 30 day Reassessments:: Met Nutrition - 90-Day Assessment Weight Mgt (Other Care) Height: 5 ft 3 in Weight:: 176 lb BMI: 31.1 Nutrition - Final Assessment Visit Date of Assessment:: 12/23/23 Session #:: 32 Cholesterol/Lipids (Other Core Measures) Determine presence & major risk factors that modify LDL goal: Low HDL cholesterol <40 mg/dL*, Family history of premature CHD in Male < 55 years: female <65 yearsFa and Age men > 45 years; women >/= 55 years Outcomes/Goals: Pt IDs own risk factors & lifestyle modifications by Session 10, Verbalizes symptoms of angina & response by session 3., Pt independently manages and Other Additional Outcomes/Goals: Intervention/Plan: Advocate for lipid panel cholesterol medication if applicable, Instruct on personal lipid levels & lipid goals/NCEP guidelines, Instruct on cholesterol and Other additional plan/int 30-day Reassessments:: Met Weight Mgt (Other Care) Height: 5 ft 3 in Weight:: 176 lb BMI: 31.1 Diagnosis Overweight/Obesity BMI> 30% ICD-10 E66: Yes Diagnosis High BMI/Morbid Obesity BMI> 35% ICD-10 Z68: No Outcomes/Goals: Pt sets, maintains & shows weight loss goal & trend during rehab and Other additional outcomes/goals Intervention/Plan: Instruct on ideal BMI & set weight loss goal w/patient, Assist pt to ID & incorporate diet changes for weight loss by S9, Refer to Structured Weight Loss program as appropriate, Encourage goal of using 250- 300dcal per session for weight loss and Other additional plan/interventions 30 day Reassessments:: Met Healthy Eating Habits Will attend diet classes:: Yes Outcomes/Goals:: Consume diet rich in vegs,fruits,whole grain/high fiber,fish,lean meat, Limit sat/trans fats,cholesterol & added salts & sugars and Other additional outcome/goals: Intervention/Plan:: Assess current eating habits and Other Additional plan/interventions 30-day Reassessments:: Met Education Gave educational materials for:: Signs & symptoms of hypoglycemia, Signs & symptoms of hyperglycemia, Relate diabetes to coronary artery disease and Healthy eating
[2023-12-23 08:25] VITALS: BP 130/80; BMI 31.1
== END 2024-01-10 23:59 ==
LOC: CR 15:15
DX: Z95.2 Presence of prosthetic heart valve (principal); Z95.828 Presence of other vascular implants and grafts; E66.9 Obesity, unspecified
CPT/HCPCS: 93798